=== PATIENT | female | born 1935 | race Caucasian/White ===

== ENCOUNTER → 2021-12-05 10:45 | Outpatient (BNVA) | payer MEDICARE, SELFPAY | PROVIDERS: Family Provider Nurse Practitioner Family; PCP Nurse Practitioner Family; Visit Provider Internal Medicine Cardiovascular Disease | DX: I49.9 Cardiac arrhythmia, unspecified (principal); R06.02 Shortness of breath; I27.29 Other secondary pulmonary hypertension; I11.0 Hypertensive heart disease with heart failure; I50.33 Acute on chronic diastolic (congestive) heart failure; E78.2 Mixed hyperlipidemia | CPT/HCPCS: 80048; 80061; 83880; 99214 ==

== ENCOUNTER 2022-03-19 11:14 | Emergency (ER) | payer MEDICARE, OTHER, SELFPAY ==
[2022-03-19 12:04] VITALS: BP 144/62; PULSE 61; RESP 14; TEMP 36.7; O2SAT 95; BMI 19.8
[2022-03-19 13:44] LABS: Basophils % 0.2 %; Eosinophils % 0.1 %; Hematocrit 39.6 % (37.0-47.0); Hemoglobin 12.7 g/dL (11.5-15.3); Lymphocytes # 1.3 10^3/uL (0.8-4.8); Lymphocytes % 12.5 %; Mean Corpuscular HGB Conc 32.1 g/dL (30.0-36.0); Mean Corpuscular Hemoglobin 32.1 pg (28.0-34.0); Mean Platelet Volume 9.5 fL (7.4-10.4); Monocytes # 1.1 10^3/uL (0.2-0.9); Monocytes % 11.2 %; Neutrophils # 7.52 10^3/uL (1.8-7.7); Neutrophils % 75.5 %; Nucleated Red Blood Cells % 0 %; Platelet Count 310 10^3/cmm (130-400); Red Blood Count 3.96 10^6/uL (4.1-5.3); Red Cell Distribution Width 12.8 % (12.1-15.1)
[2022-03-19 13:59] LABS: Anion Gap 16.1 (5-19); Blood Urea Nitrogen 21 mg/dL (8-23); Calcium 10.2 mg/dL (8.5-10.5); Carbon Dioxide 29 mmol/L (22-29); Chloride 96 mmol/L (98-107); Glucose 89 mg/dL (65-115); Osmolality Calculated 286 mOsm/kg (285-295); Potassium 4.1 mmol/L (3.5-5.1); Sodium 137 mmol/L (136-145)
[2022-03-19 14:33] VITALS: BP 163/76; PULSE 58; RESP 17; O2SAT 97
--- NOTE | 2022-03-19 14:43 | XR_ITS ---
WS: [id number] Lumbar spine, 3 views, 03/19/2022 Clinical Data: low back pain Comparison: CT L-spine, 07/23/2015. Findings: There is a compression fracture of the L4 vertebral body with loss of 50% of the central vertebral thi dy height which was not present on the prior CT lumbar spine. There is an old compression fracture of L1 with loss of the 50% of the central vertebral body height unchanged. There is degenerative disc n arrowing at L5-S1. 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 There is a slight levoscoliosis. Diffuse demineralization is present. The transverse processes and SI joints are unremarkable. There is a large amount of fecal material throughout the colon. There is ca lcification in the wall of the abdominal aorta but no aneurysm. XR/XR lumbar spine 2-3V* [id number] Impression: 1. L4 compression fracture with loss of 50% of the central vertebral body heigh t which may be recent. 2. Old compression fracture of L1. 3. Degenerative disc narrowing at L5-S1. 4. Levoscoliosis and osteoporosis.
--- NOTE | 2022-03-19 14:51 | ED_ITS ---
HPI - Back Pain/Injury General: Chief Complaint: Back Pain/Injury Stated Complaint: lower abd pain Time Seen by Provider: 03/19/22 14:07 History of Present Illness: Patient is an 87-year-old female comes to the ED with lower back pain. Symptoms have been going on now for approximately 3 weeks. She denies any fall or injury to cause pain. She saw her PCP approximately 4 days ago and they thought her back pain was due to a UTI and she has been on an antibiotic nitrofurantoin for the past 4 days. They also gave patient a shot of antibiotic at clinic. She states that her back pain has improved quite a bit over the past couple days. She says her pain is in the lower back and on the right side. She rates pain as mild today. She has been taking Tylenol for pain. Her PCP sent her here to the ED to have an x-ray of her lumbar spine done. Denies any fevers, nausea/vomiting, abdominal pain, dysuria or hematuria. Associated symptoms: Deny abdominal pain, chills, dysuria, fatigue, fever(s), hematuria, nausea or vomiting Review of Systems Const: Denies: fever(s), chills or fatigue Eyes: Denies: change in vision or eye discomfort ENMT: Denies: throat pain, odynophagia, nasal discharge or nasal congestion Card: Denies: chest pain, palpitations, edema, swelling of feet/ankles, dyspnea on exertion or orthopnea Resp: Denies: dyspnea, productive cough or non-productive cough GI: Denies: abdominal pain, nausea, vomiting, diarrhea, constipation or hematochezia : Denies: flank pain, dysuria or hematuria Musc: Reports: back pain (Lower back); Denies: neck pain or extremity swelling Skin/Breast: Denies: rash or new lesions Neuro: Denies: headache(s), numbness in extremities or weakness in extremities PFSH ED PFSH: Medical History Benign essential hypertension with target blood pressure below 140/90 Hyperlipidemia Near syncope Osteoporosis Pulmonary hypertension assoc with unclear multi-factorial mechanisms Syncope Thoracic back pain Ventricular arrhythmia Ventricular arrhythmia Family History Family/Other CAD (coronary artery disease) Other Hypertension Denies family history of Diabetes Clotting disorder Dementia Chronic kidney disease (CKD) Suicide Anesthesia complication Bleeding disorder Lung disease Cancer Stroke Social History Smoking and tobacco status: never smoked Alcohol intake: never Physical Exam Const: COMMON NORMALS: no acute distress, patient oriented x3 and alert G ENERAL APPEARANCE: cooperative and comfortable HENMT: COMMON NORMALS: normocephalic HEAD & SCALP: normocephalic MOUTH: Normal oral and palatal mucosa present THROAT: posterior oropharynx normal and uvula midline Neck/C-Spine: COMMON NORMALS: supple GENERAL: Yes normal visual inspection Resp: COMMON NORMALS: normal respiratory effort, No retractions, No use of accessory muscles and clear to auscultation bilaterally AUSCULTATION: clear to auscultation bilaterally Cardio: COMMON NORMALS: regular rate, regular rhythm, S1 normal heart sound present, S2 normal heart sound present, No gallops present (Cardio), No clicks present (Cardio), No murmurs present (Cardio) and Peripheral pulses 2+ throughout RATE: regular rate RHYTHM: regular rhythm HEART SOUNDS: S1 normal heart sound present and S2 normal heart sound present PERIPHERAL PULSES: Peripheral pulses 2+ throughout GI: COMMON NORMALS: Normal to inspection, nondistended, normoactive bowel sounds present, Soft to palpation, non-tender and no masses PALPATION: Yes Soft to palpation : COMMON NORMALS: Yes no CVA tenderness BLADDER/KIDNEY EXAM: Yes no CVA tenderness Back/Pelvis: COMMON NORMALS: no CVA tenderness LUMBAR SPINE/LOWER BACK: Yes lumbar spinal tenderness Lumbar spinal tenderness location: L3 and L4 and Yes paraspinal muscle tenderness Lumbar paraspinal muscle tenderness: right Right lumbar paraspinal muscle tenderness: L2, L3 and L4 Extremity: COMMON NORMALS: normal to inspection Neuro: COMMON NORMALS: patient oriented x3 SENSORIUM/ORIENTATION: Yes alert GAIT: Yes Normal gait present Skin: GENERAL SKIN EXAM: dry skin Course Vital Signs: Vital signs: Vital Signs Temperature 98.1 F 03/19/22 12:04 Pulse Rate 60 03/19/22 17:12 Respiratory Rate 17 03/19/22 17:12 Blood Pressure 152/82 03/19/22 17:12 Pulse Oximetry 97 03/19/22 17:12 Oxygen Delivery Me thod 03/19/22 14:33 MDM - Back Pain/Injury Medical Decision Making Patient is an 87-year-old female comes to the ED with lower back pain. Symptoms have been going on now for approximately 3 weeks. She denies any fall or injury to cause pain. She saw her PCP approximately 4 days ago and they thought her back pain was due to a UTI and she has been on an antibiotic nitrofurantoin for the past 4 days. Patient was sent here by PCP to have x-ray of lumbar spine done. Vitals are stable. Patient appears nontoxic in no acute distress. She has some lumbar paraspinal muscle tenderness on the right side and some lumbar spinal tenderness around L3 and L4. Rest of exam is benign. CBC and CMP were unremarkable. UA showed a little bit of RBCs white blood cells and positive nitrates. X-ray of lumbar spine showed L4 compression fracture with 50% loss of vertebral height and it may be recent injury. Given patient's symptoms I ordering her TLSO brace and I placed a referral with case management for patient to be followed up with Dr. Davalos for lumbar compression fracture. She was given a dose of IM Rocephin here in the ED to help with UTI as well. Patient was stable for discharge home and diagnosed with lumbar spine compression fracture and UTI. She was told to continue taking her previously prescribed antibiotic and pain med. Return to ED precautions given. Follow-up with PCP within the next 3 to 5 days for reevaluation. Patient understood and agreed with plan. Labs I reviewed the patient's lab results. : 03/19/22 13:22 03/19/22 13:22 Radiology Impressions Lumbar Spine X-Ray 03/19/22 14:43 Impression: 1. L4 compression fracture with loss of 50% of the central vertebral body height which may be recent. 2. Old compression fracture of L1. 3. Degenerative disc narrowing at L5-S1. 4. Levoscoliosis and osteoporosis. Laboratory Results WBC 10.0 10^3/uL (4.0-10.0) 03/19/22 13:22 RBC 3.96 10^6/uL (4.1-5.3) L 03/19/22 13:22 Hgb 12.7 g/dL (11.5-15.3) 03/19/22 13:22 Hct 39.6 % (37.0-47.0) 03/19/22 13:22 MCV 100.0 fl (81-99) H 03/19/22 13:22 MCH 32.1 pg (28.0-34.0) 03/19/22 13:22 MCHC 32.1 g/dL (30.0-36.0) 03/19/22 13:22 RDW 12.8 % (12.1-15.1) 03/19/22 13:22 Plt Count 310 10^3/cmm (130-400) 03/19/22 13:22 MPV 9.5 fL (7.4-10.4) 03/19/22 13:22 Neut % (Auto) 75.5 % 03/19/22 13:22 Lymph % (Auto) 12.5 % 03/19/22 13:22 [place] % (Auto) 11.2 % 03/19/22 13:22 Eos % (Auto) 0.1 % 03/19/22 13:22 Baso % (Auto) 0.2 % 03/19/22 13:22 Neut # (Auto) 7.52 10^3/uL (1.8-7.7) 03/19/22 13:22 Lymph # (Auto) 1.3 10^3/uL (0.8-4.8) 03/19/22 13:22 [place] # (Auto) 1.1 10^3/uL (0.2-0.9) H 03/19/22 13:22 Eos # (Auto) 0.0 10^3/uL (0.0-0.8) 03/19/22 13:22 Baso # (Auto) 0.0 10^3/uL (0.0-0.1) 03/19/22 13:22 Nucleated RBC % (auto) 0 % 03/19/22 13:22 Nucleated RBCs # 0.0 /100WBC 03/19/22 13:22 Sodium 137 mmol/L (136-145) 03/19/22 13:22 Potassium 4.1 mmol/L (3.5-5.1) 03/19/22 13:22 Chloride 96 mmol/L (98-107) L 03/19/22 13:22 Carbon Dioxide 29 mmol/L (22-29) 03/19/22 13:22 Anion Gap 16.1 (5-19) 03/19/22 13:22 BUN 21 mg/dL (8-23) 03/19/22 13:22 Creatinine 1.2 mg/dL (0.5-0.9) H 03/19/22 13:22 GFR Calculation Not Reportable 03/19/22 13:22 Glucose 89 mg/dL (65-115) 03/19/22 13:22 Calculated Osmolality 286 mOsm/kg (285-295) 03/19/22 13:22 Calcium 10.2 mg/dL (8.5-10.5) 03/19/22 13:22 Urine Color [place] (Yellow) 03/19/22 15:28 Urine Appearance Clear (CLEAR) 03/19/22 15:28 Urine pH 5 (5-7) 03/19/22 15:28 Ur Specific [place] 1.020 (1.005-1.030) 03/19/22 15:28 Urine Protein 1+ (Negative) H 03/19/22 15:28 Urine Glucose (UA) Norm (Normal) 03/19/22 15:28 Urine Ketones 1+ (Negative) H 03/19/22 15:28 Urine Blood Neg (Negative) 03/19/22 15:28 Urine Nitrate Positive (Negative) H 03/19/22 15:28 Urine Bilirubin 1+ (Negative) H 03/19/22 15:28 Urine Urobilinogen 4 mg/dL (Negative) H 03/19/22 15:28 Ur Leukocyte Esterase Negative (Negative) 03/19/22 15:28 Urine RBC 0-4 /hpf (0-2) H 03/19/22 15:28 Urine WBC 0-4 /hpf (0-5) H 03/19/22 15:28 Ur Squamous Epith Cells 0-4 /hpf (0-5) H 03/19/22 15:28 Amorphous Sediment 2+ /hpf 03/19/22 15:28 Urine Bacteria Trace /hpf (NONE) 03/19/22 15:28 Discharge Plan Discharge Patient Disposition: Home Clinical Impression: Compression fracture of lumbar vertebra Qualifiers: Encounter type: initial encounter Lumbar vertebra fracture level: L4 Qualified Code(s): S32.040A - Wedge compression fracture of fourth lumbar vertebra, initial encounter for closed fracture UTI (urinary tract infection) Qualifiers: Urinary tract infection type: acute cystitis Hematuria presence: with hematuria Qualified Code(s): N30.01 - Acute cystitis with hematuria Condition: Stable Prescriptions: No Action naproxen sodium [Aleve] 220 mg tablet 220 mg PO BID PRN aspirin 81 mg tablet,delayed release (DR/EC) 81 mg PO DAILY multivitamin Tablet 1 tab PO DAILY calcium carbonate-vit D3-min 600 mg calcium- 400 unit tablet 1 tab PO BID dimenhydrinate [Motion Sickness] 50 mg tablet 50 mg PO Q8H PRN ascorbic acid (vitamin C) 1,000 mg tablet 500 mg PO DAILY latanoprost 0.005 % drops 1 drop ophthalmic (eye) BID vitamin B complex [B Complex-Vitamin B12] Tablet 1 tab PO DAILY vit C,E,Zn,Yh--hrl-zeax 250-2.5-0.5 mg capsule PO DAILY metoprolol tartrate 25 mg tablet 25 mg PO BID Qty: 270 1RF Rx Instructions: patient to take 2 tabs in the AM and one in the PM lisinopril 5 mg tablet 5 mg PO DAILY Qty: 90 3RF furosemide [Lasix] 20 mg tablet 20 mg PO DAILY Qty: 90 3RF potassium chloride 8 mEq tablet extended release 8 meq PO DAILY Qty: 90 3RF lovastatin 40 mg tablet 40 mg PO DAILY Qty: 90 3RF Discharge Orders: Discharge ED (Routine); Ordered 03/19/22 Ordered By: Keegan Upton Referrals: Anabell Gill APN [Primary Care Provider] - Discharge Diet: Regular Discharge Activity: Increase activity as tolerated Patient Instructions: Urinary Tract Infection in Women (DC), Thoracolumbar Fracture (ED) Activity Restrictions/Additional Instructions: Follow-up with medical provider as directed in the next 5 to 7 days for reevalua tion. Case management should be contacting you in the next several days set up an appointment with Dr. Davalos the orthospine specialist for further management and evaluation of lumbar vertebrae compression fracture. Wear TLSO brace. Continue taking your previously prescribed antibiotic and pain med. Rest and limit any lifting and activities until cleared by Ortho child protective services specialist. Return to the ER or your medical provider if condition worsens. Please read and understand discharge instructions. Thank you for choosing [facility] for your healthcare needs today. Please realize this is an emergency room and that we are providing you with a medical screening exam and this may not be complete and all inclusive of all the testing and or work up that you may need to determine your ailment or severity of your illness. It is very important that you follow up as instructed or that you return to the Emergency Department should you have concerns or if your condition changes or worsens in any way. Coding Level of Care Code ED Press Tender for Xavi Guerrero Exam Comprehensive
[2022-03-19 16:20] LABS: Add Urine Culture? No; Add Urine Microscopic? YES; Amorphous Sediment Urine 2+ /hpf; Bacteria Urine TRACE /hpf; Bilirubin Urine 1+ (Negative); Blood Urine Neg (Negative); Glucose Urine UA Norm (Normal); Ketones Urine 1+ (Negative); Leukocyte Esterase Urine Negative (Negative); Nitrate Urine Positive (Negative); Protein Urine 1+ (Negative); RBC Urine 0-4 /hpf (0-2); Squamous Epithelial Cell Urine 0-4 /hpf (0-5); Urine Appearance Clear (CLEAR); Urine Color Orange (Yellow); Urobilinogen Urine 4 mg/dL (Negative); WBC Urine 0-4 /hpf (0-5); pH Urine 5 (5-7)
[2022-03-19] MEDS: lidocaine 1% INJ 20 mL MDV (mL) 2.1 ML XX (16:48)
[2022-03-19] MEDS: cefTRIAXone 1,000 mg SDV 1000 MG IM (16:49)
[2022-03-19 17:12] VITALS: BP 152/82; PULSE 60; RESP 17; O2SAT 97
--- NOTE | 2022-03-20 09:40 | DCPLANNER ---
Addendum entered by Zainab Fishman 03/20/22 10:55: manager human capital received the following message from the ortho clinic regarding follow up appointment: Pt had me speak with her daughter in law who stated they cannot bring her in due to having too much going on right now and they would call back when things slow down. I advised that it was in the patients best interest to schedule an appt as soon as possible Original Note: manager human capital had message to schedule a follow up appointment for patient with ortho. manager human capital sent patients information to the front office staff at ortho. Patients information will be printed and reviewed. Clinic will call patient with appointment information.
== END 2022-03-19 17:27 | disposition home or self-care (01) ==
PROVIDERS: Family Medicine; Emergency Provider Physician Assistant; PCP Nurse Practitioner Family
DX: S32.040A Wedge compression fracture of fourth lumbar vertebra, initial encounter for closed fracture (principal); N30.01 Acute cystitis with hematuria; Z79.82 Long term (current) use of aspirin; I10 Essential (primary) hypertension; E78.5 Hyperlipidemia, unspecified; X58.XXXA Exposure to other specified factors, initial encounter
CPT/HCPCS: 72100; 80048; 81001; 85025; 96372; 99284; J0696

== ENCOUNTER 2022-03-21 17:25 | Emergency (ER) | payer MEDICARE, OTHER, SELFPAY ==
[2022-03-21 17:30] VITALS: BP 159/80; PULSE 62; RESP 16; TEMP 36.4; O2SAT 94
--- NOTE | 2022-03-21 17:50 | ED_ITS ---
HPI - Back Pain/Injury General: Chief Complaint: Back Pain/Injury Stated Complaint: Right leg and back in pain Time Seen by Provider: 03/21/22 17:48 History of Present Illness: 87-year-old female comes in today with complaints of low back radiating to the right lower extremity. Due to pain on the right inner leg after family discussed with primary care provider. PCP recommended further evaluation for blood clot of the leg. Patient has recently been diagnosed with a compression fracture due to osteoporosis of the lumbar spine. Patient appears nontoxic. Patient appears in mild to moderate pain. Associated symptoms: Deny fever(s) Review of Systems General: Reports: 10 or more systems reviewed and unremarkable except in HPI and below Const: Denies: fever(s) Card: Denies: chest pain Resp: Denies: dyspnea Musc: Reports: extremity pain [facility] ED PFSH: Medical History Benign essential hypertension with target blood pressure below 140/90 Hyperlipidemia Near syncope Osteoporosis Pulmonary hypertension assoc with unclear multi-factorial mechanisms Syncope Thoracic back pain Ventricular arrhythmia Ventricular arrhythmia Family History Family/Other CAD (coronary artery disease) Other Hypertension Denies family history of Diabetes Clotting disorder Dementia Chronic kidney disease (CKD) Suicide Anesthesia complication Bleeding disorder Lung disease Cancer Stroke Social History Smoking and tobacco status: never smoked Alcohol intake: never Physical Exam Const: COMMON NORMALS: alert HENMT: HEAD & SCALP: normal to inspection Neck/C-Spine: COMMON NORMALS: full ROM Resp: COMMON NORMALS: normal respiratory effort and clear to auscultation bilaterally AUSCULTATION: clear to auscultation bilaterally Cardio: COMMON NORMALS: regular rate and regular rhythm RATE: regular rate RHYTHM: regular rhythm Extremity: RIGHT LOWER EXTREMITY: Yes upper leg (Palpable tenderness to the right thigh.) and Yes lower leg (No swelling or redness.) Neuro: SENSORIUM/ORIENTATION: Yes alert Skin: COMMON NORMALS: no rashes or lesions noted GENERAL SKIN EXAM: no rashes or lesions noted Course Vital Signs: Vital signs: Vital Signs Temperature 97.5 F L 03/21/22 17:30 Pulse Rate 62 03/21/22 17:30 Respiratory Rate 16 03/21/22 17:30 Blood Pressure 159/80 03/21/22 17:30 Pulse Oximetry 94 03/21/22 17:30 Oxygen Delivery Me thod 03/21/22 17:30 MDM - Back Pain/Injury Medical Decision Making Patient comes in today for complaints of radiating pain going down the right leg. Patient recently been diagnosed with a compression fracture of the lumbar spine. Patient has had aggravating pain and discomfort. Patient appears nontoxic. Patient appears in no pain at rest. Right lower extremity has no swelling or redness and negative Homans' sign. Primary care recommended further evaluation though to rule out DVT. Differential diagnosis includes but not limited to lumbar radiculopathy, DVT, muscle strain, intervertebral disc disease, facet arthropathy, piriformis syndrome. Ultrasound of the extremity noted no DVT. Feel the patient probably has radiculopathy secondary to her acute compression fractures. Recommend better pain control. We will start some hydrocodone 5/325's 1 tablet every 8 hours for severe pain. Patient and family both reported understanding. Also recommended follow-up with primary care for physical therapy referral. Discharge Plan Discharge Patient Disposition: Home Clinical Impression: Acute lumbar radiculopathy Compression fracture of lumbar vertebra Qualifiers: Encounter type: subsequent encounter Lumbar vertebra fracture level: unspecified lumbar vertebra Fracture healing: with routine healing Qualified Code(s): S32.000D - Wedge compression fracture of unspecified lumbar vertebra, subsequent encounter for fracture with routine healing Condition: Stable Prescriptions: New hydrocodone-acetaminophen 5-325 mg tablet 1 tab PO Q8H PRN (Reason: pain (scale score 7-10)) Qty: 15 0RF No Action naproxen sodium [Aleve] 220 mg tablet 220 mg PO BID PRN aspirin 81 mg tablet,delayed release (DR/EC) 81 mg PO DAILY multivitamin Tablet 1 tab PO DAILY calcium carbonate-vit D3-min 600 mg calcium- 400 unit tablet 1 tab PO BID dimenhydrinate [Motion Sickness] 50 mg tablet 50 mg PO Q8H PRN ascorbic acid (vitamin C) 1,000 mg tablet 500 mg PO DAILY latanoprost 0.005 % drops 1 drop ophthalmic (eye) BID vitamin B complex [B Complex-Vitamin B12] Tablet 1 tab PO DAILY vit C,E,Zn,Mr-yafeq7-dbj-zeax 250-2.5-0.5 mg capsule PO DAILY metoprolol tartrate 25 mg tablet 25 mg PO BID Qty: 270 1RF Rx Instructions: patient to take 2 tabs in the AM and one in the PM lisinopril 5 mg tablet 5 mg PO DAILY Qty: 90 3RF furosemide [Lasix] 20 mg tablet 20 mg PO DAILY Qty: 90 3RF potassium chloride 8 mEq tablet extended release 8 meq PO DAILY Qty: 90 3RF lovastatin 40 mg tablet 40 mg PO DAILY Qty: 90 3RF Discharge Orders: Discharge ED (Routine); Ordered 03/21/22 Ordered By: Barrie Turcios Referrals: Anabell Gill APN [Primary Care Provider] - Discharge Diet: Usual diet Discharge Activity: Increase activity as tolerated Patient Instructions: Vertebral Compression Fracture (ED) Activity Restrictions/Additional Instructions: Use acetaminophen and naproxen to control pain. Use hydrocodone for severe pain. Drink plenty of water with medication. Follow-up with primary care for referral for physical therapy. Increase activity as tolerated. Return to ER for worsening symptoms such as fever greater than 100.4, chest pain, or shortness of breath or new concerns. Coding Level of Care Code ED Sr Community Manager for Carolg Fwd Exam Detailed
--- NOTE | 2022-03-21 17:54 | USR_ITS ---
PROCEDURE INFORMATION: Exam: US Duplex Right Lower Extremity Veins, Limited Exam date and time: 03/21/2022 6:11 PM Age: 87 years old Clinical indication: Leg, upper and leg, lower; Right; Patient HX: Pain in RT. Leg. Has been severe. ; Additional info: Leg pain, referred from pcp of concern of blood clot TECHNIQUE: Imaging protocol: Real-time Duplex ultrasound of the Right Lower Extremity with 2-D nicholson scale, color Doppler flow and spectral waveform analysis with image documentation. Limited exam was focused on the right lower extremity veins. COMPARISON: No relevant prior studies available. FINDINGS: Right deep veins: Unremarkable. The common femoral, femoral, proximal profunda femoral and popliteal veins are patent without thrombus. Normal Doppler waveforms. Normal compressibility and/or augmentation response. Right superficial veins: Unremarkable. Saphenofemoral junction is patent without thrombus. Soft tissues: Unremarkable. US/[place] [id number] IMPRESSION: No evidence of deep vein thrombosis, right lower extremity.
--- NOTE | 2022-03-21 18:06 | PC.NURSE ---
Pt to Ultrasound with techs and family member.
[2022-03-21] MEDS: HYDROcodone-acetaminophen 5-325 mg Tablet 1 TAB PO (19:03)
== END 2022-03-21 19:05 | disposition home or self-care (01) ==
PROVIDERS: Emergency Provider Nurse Practitioner Family; PCP Nurse Practitioner Family
DX: S32.000D Wedge compression fracture of unspecified lumbar vertebra, subsequent encounter for fracture with routine healing (principal); X58.XXXD Exposure to other specified factors, subsequent encounter; M79.604 Pain in right leg
CPT/HCPCS: 93971; 99284

== ENCOUNTER → 2023-01-19 10:04 | Outpatient (BNVA) | payer MEDICARE, OTHER, SELFPAY | PROVIDERS: PCP Nurse Practitioner Family; Referring Provider Nurse Practitioner Family; Visit Provider Podiatrist Foot & Ankle Surgery | DX: I73.9 Peripheral vascular disease, unspecified (principal); B35.1 Tinea unguium | CPT/HCPCS: 11721; 99204 ==

== ENCOUNTER 2023-01-23 13:28 | Emergency (ER) | payer MEDICARE, OTHER, SELFPAY ==
[2023-01-23 13:29] VITALS: BP 120/46; PULSE 55; RESP 18; TEMP 36.8; O2SAT 96
--- NOTE | 2023-01-23 13:31 | ED_ITS ---
HPI - Syncope General: Chief Complaint: Syncope Stated Complaint: syncope Time Seen by Provider: 01/23/23 13:29 Source: patient Mode of arrival: ambulatory History of Present Illness: 87-year-old female presents emergency room via EMS she is awake and alert. She had a syncopal episode while sitting was unresponsive for a few minutes. She is awake and alert and actually asking to leave his soon as she arrives in the emergency room department. She has no focal neurologic deficits she denies chest or abdominal pain or any other symptoms. She did recently have her metoprolol increased. MD complaint: loss of consciousness Onset (ago): minute(s) Prodromal symptoms: lightheaded Witnessed: Yes - by Bystander Context: at rest Associated symptoms: Reports lightheadedness; Deny abdominal pain, chest pain, fever(s), headache(s), nausea, short of breath, vertigo or weakness Treatments prior to arrival: none Review of Systems Const: Denies: fever(s), chills, body aches, change in appetite, fatigue or malaise ENMT: Denies: throat pain, ear or mastoid pain, nasal discharge or nasal congestion Card: Reports: lightheadedness; Denies: chest pain, edema, dyspnea on exertion or orthopnea Resp: Denies: dyspnea, productive cough or non-productive cough GI: Denies: abdominal pain, nausea, vomiting, hematemesis, coffee ground emesis, diarrhea, constipation, bloating, hematochezia or melena : Denies: flank pain, difficulty voiding, dysuria, urinary frequency or urinary urgency Skin/Breast: Denies: rash or pruritus Neuro: Denies: headache(s) or vertigo [facility] PFSH: Medical History Benign essential hypertension with target blood pressure below 140/90 Hyperlipidemia Near syncope Osteoporosis Pulmonary hypertension assoc with unclear multi-factorial mechanisms Syncope Thoracic back pain Ventricular arrhythmia Ventricular arrhythmia Family History Family/Other CAD (coronary artery disease) Other Hypertension Denies family history of Diabetes Clotting disorder Dementia Chronic kidney disease (CKD) Suicide Anesthesia complication Bleeding disorder Lung disease Cancer Stroke Social History Smoking and tobacco status: never smoked Alcohol intake: never Substance/Drug Use: never Physical Exam Const: GENERAL APPEARANCE: cooperative and comfortable ORIENTATION/CONSCIOUSNESS: Yes awake, Yes oriented to person, Yes oriented to place and Yes oriented to time HENMT: COMMON NORMALS: normocephalic, atraumatic and hearing grossly normal bilaterally HEAD & SCALP: normocephalic and atraumatic Resp: COMMON NORMALS: normal respiratory effort, No retractions, No use of accessory muscles and clear to auscultation bilaterally AUSCULTATION: clear to auscultation bilaterally Cardio: COMMON NORMALS: regular rate, regular rhythm and No murmurs present (Cardio) RATE: regular rate RHYTHM: regular rhythm GI: COMMON NORMALS: Soft to palpation and No hepatosplenomegaly present AUSCULTATION: Yes normoactive bowel sounds PALPATION: Yes Soft to palpation, No Tenderness to palpation present (GI), No Guarding due to palpation present (GI) and Yes No hepatosplenomegaly present : COMMON NORMALS: Yes no CVA tenderness BLADDER/KIDNEY EXAM: Yes no CVA tenderness Back/Pelvis: COMMON NORMALS: no CVA tenderness Extremity: COMMON NORMALS: normal to inspection, capillary refill normal, no clubbing, cyanosis or edema, no calf tenderness and no pedal edema Neuro: SENSORIUM/ORIENTATION: Yes oriented to person, Yes oriented to place and Yes oriented to time Skin: COMMON NORMALS: no rashes or lesions noted GENERAL SKIN EXAM: no rashes or lesions noted Course Vital Signs: Vital signs: Vital Signs Temperature 98.2 F 01/23/23 13:29 Pulse Rate 54 L 01/23/23 14:11 Respiratory Rate 18 01/23/23 14:11 Blood Pressure 132/78 01/23/23 16:27 Pulse Oximetry 94 01/23/23 14:11 Oxygen Delivery Me thod Room Air 01/23/23 14:11 MDM - Syncope Medical Decision Making Cardiac enzymes are negative patient would like to go home. She recently her metoprolol increased she is rather bradycardic and was hypotensive for a time. She is doing better she is awake and alert. EKGs did not show anything other than a sinus bradycardia. Rate at times was as low as 48. We will decrease her metoprolol to 12.5 twice daily have her follow-up with her primary care doctor we will get a 48-hour Holter monitor and echocardiogram set up as an outpatient she is to return if she has any further symptoms. Medical Records I reviewed the patient's medical records. Lab Data I reviewed the patient's lab results. 01/23/23 13:39 01/23/23 13:39 Radiology Impressions Chest X-Ray 01/23/23 13:32 IMPRESSION: Unremarkable frontal portable chest x-ray. Laboratory Results WBC 5.2 10^3/uL (4.0-10.0) 01/23/23 13:39 RBC 4.06 10^6/uL (4.1-5.3) L 01/23/23 13:39 Hgb 12.5 g/dL (11.5-15.3) 01/23/23 13:39 Hct 38.5 % (37.0-47.0) 01/23/23 13:39 MCV 94.8 fl (81-99) 01/23/23 13:39 MCH 30.8 pg (28.0-34.0) 01/23/23 13:39 MCHC 32.5 g/dL (30.0-36.0) 01/23/23 13:39 RDW 13.5 % (12.1-15.1) 01/23/23 13:39 Plt Count 211 10^3/cmm (130-400) 01/23/23 13:39 MPV 10.6 fL (7.4-10.4) H 01/23/23 13:39 Neut % (Auto) 60.9 % 01/23/23 13:39 Lymph % (Auto) 28.8 % 01/23/23 13:39 [place] % (Auto) 8.7 % 01/23/23 13:39 Eos % (Auto) 0.8 % 01/23/23 13:39 Baso % (Auto) 0.6 % 01/23/23 13:39 Neut # (Auto) 3.15 10^3/uL (1.8-7.7) 01/23/23 13:39 Lymph # (Auto) 1.5 10^3/uL (0.8-4.8) 01/23/23 13:39 [place] # (Auto) 0.5 10^3/uL (0.2-0.9) 01/23/23 13:39 Eos # (Auto) 0.0 10^3/uL (0.0-0.8) 01/23/23 13:39 Baso # (Auto) 0.0 10^3/uL (0.0-0.1) 01/23/23 13:39 Nucleated RBC % (auto) 0 % 01/23/23 13:39 Nucleated RBCs # 0.0 /100WBC 01/23/23 13:39 Sodium 137 mmol/L (136-145) 01/23/23 13:39 Potassium 4.0 mmol/L (3.5-5.1) 01/23/23 13:39 Chloride 99 mmol/L (98-107) 01/23/23 13:39 Carbon Dioxide 26 mmol/L (22-29) 01/23/23 13:39 Anion Gap 16.0 (5-19) 01/23/23 13:39 BUN 24 mg/dL (8-23) H 01/23/23 13:39 Creatinine 1.4 mg/dL (0.5-0.9) H 01/23/23 13:39 GFR Calculation Not Reportable 01/23/23 13:39 Glucose 118 mg/dL (65-115) H 01/23/23 13:39 Calculated Osmolality 289 mOsm/kg (285-295) 01/23/23 13:39 Calcium 9.2 mg/dL (8.5-10.5) 01/23/23 13:39 Total Bilirubin 0.5 mg/dL (0.15-1.2) 01/23/23 13:39 AST 19 U/L (0-32) 01/23/23 13:39 ALT 10 U/L (0-33) 01/23/23 13:39 Alkaline Phosphatase 58 U/L (35-105) 01/23/23 13:39 Troponin T Baseline 43 ng/L (0-10) H 01/23/23 13:39 Troponin T 120 Minute 32.86 ng/L (0-10) H 01/23/23 15:33 Delta Troponin T -10.14 ABS# (0-10) L 01/23/23 15:33 Total Protein 6.3 g/dL (6.6-8.7) L 01/23/23 13:39 Albumin 3.8 g/dL (3.5-5.2) 01/23/23 13:39 Globulin 2.5 g/dL (1.3-4.6) 01/23/23 13:39 Discharge Plan Discharge Patient Disposition: Home Clinical Impression: Syncope Condition: Stable Prescriptions: Changed metoprolol tartrate 25 mg tablet 12.5 mg PO BID Qty: 270 0RF No Action naproxen sodium [Aleve] 220 mg tablet 220 mg PO BID PRN (Reason: Pain) aspirin 81 mg tablet,delayed release (DR/EC) 81 mg PO DAILY multivitamin Tablet 1 tab PO DAILY calcium carbonate-vit D3-min 600 mg calcium- 400 unit tablet 1 tab PO BID dimenhydrinate [Motion Sickness] 50 mg tablet 50 mg PO Q8H PRN (Reason: Motion Sickness) ascorbic acid (vitamin C) 1,000 mg tablet 500 mg PO DAILY latanoprost 0.005 % drops 1 drop ophthalmic (eye) BID vitamin B complex [B Complex-Vitamin B12] Tablet 1 tab PO DAILY lisinopril 5 mg tablet 5 mg PO DAILY Qty: 90 3RF lovastatin 40 mg tablet 40 mg PO DAILY Qty: 90 3RF hydrocodone-acetaminophen 5-325 mg tablet 1 tab PO Q8H PRN (Reason: pain (scale score 7-10)) Qty: 15 0RF escitalopram oxalate 10 mg tablet 10 mg PO DAILY vit C-E-zinc [id number]-fdakxc 50 mg-15 unit- 4.5 mg-2.5 mg Tablet,Chewable 1 tab PO DAILY Discharge Orders: Discharge ED (Routine); Ordered 01/23/23 Ordered By: Pratik Dowling Referrals: Anabell Gill APN [Primary Care Provider] - Discharge Diet: Usual diet Discharge Activity: Increase activity as tolerated Patient Instructions: Opioid Safety, Pain Management Activity Restrictions/Additional Instructions: Decrease your metoprolol to half a tablet twice a day. ecommerce manager will make arrangements for outpatient echocardiogram and 48-hour Holter monitor. If you have any recurrent symptoms return to the emergency room. Coding Level of Care Code ED [employer] for [employer]
--- NOTE | 2023-01-23 13:32 | XR_ITS ---
WS: [id number] EXAMINATION: XR chest 1V portable [id number] REASON FOR EXAM: dyspnea/cough COMPARISON: None available. ORDER DATE: 01/23/2023 1:32 PM TECHNIQUE: A single, portable frontal chest x-ray was obtained. X-RAY FINDINGS: The lungs are clear. Pleural spaces are clear. No pleural effusions or pneumothorax. Cardiomediastinal silhouette is unremarkable except for atherosclerotic aortic change. No evidence fo r pulmonary edema. Soft tissue and osseous structures are unremarkable. No tubes or lines are present. XR/XR chest 1V portable [id number] IMPRESSION: Unremarkable frontal portable chest x-ray.
--- NOTE | 2023-01-23 13:32 | ECG_ITS ---
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 Measurements Intervals [place] Rate: 51 P: 17 MD: 153 QRS: 43 QRSD: 81 T: 55 QT: 435 QTc: 402 Interpretive Statements SINUS BRADYCARDIA No previous ECG available for comparison Electronically Signed On 01-23-2023 18:38:28 CDT by Jane Brown M.D. [id number]
[2023-01-23 13:39] VITALS: RESP 18; O2SAT 92
[2023-01-23 13:59] LABS: Basophils % 0.6 %; Eosinophils % 0.8 %; Hematocrit 38.5 % (37.0-47.0); Hemoglobin 12.5 g/dL (11.5-15.3); Lymphocytes # 1.5 10^3/uL (0.8-4.8); Lymphocytes % 28.8 %; Mean Corpuscular HGB Conc 32.5 g/dL (30.0-36.0); Mean Corpuscular Hemoglobin 30.8 pg (28.0-34.0); Mean Corpuscular Volume 94.8 fl (81-99); Mean Platelet Volume 10.6 fL (7.4-10.4); Monocytes # 0.5 10^3/uL (0.2-0.9); Monocytes % 8.7 %; Neutrophils # 3.15 10^3/uL (1.8-7.7); Neutrophils % 60.9 %; Nucleated Red Blood Cells % 0 %; Platelet Count 211 10^3/cmm (130-400); Red Blood Count 4.06 10^6/uL (4.1-5.3); Red Cell Distribution Width 13.5 % (12.1-15.1); White Blood Count 5.2 10^3/uL (4.0-10.0)
[2023-01-23 14:11] VITALS: BP 106/45; PULSE 54; RESP 18; O2SAT 94
[2023-01-23 14:21] LABS: Troponin(5th) Baseline 43 ng/L (0-10)
[2023-01-23 14:24] LABS: Alanine Aminotransferase 10 U/L (0-33); Albumin Level 3.8 g/dL (3.5-5.2); Alkaline Phosphatase 58 U/L (35-105); Aspartate Amino Transferase 19 U/L (0-32); Blood Urea Nitrogen 24 mg/dL (8-23); Calcium 9.2 mg/dL (8.5-10.5); Carbon Dioxide 26 mmol/L (22-29); Chloride 99 mmol/L (98-107); Globulin 2.5 g/dL (1.3-4.6); Glucose 118 mg/dL (65-115); Osmolality Calculated 289 mOsm/kg (285-295); Sodium 137 mmol/L (136-145); Total Bilirubin 0.5 mg/dL (0.15-1.2); Total Protein 6.3 g/dL (6.6-8.7)
--- NOTE | 2023-01-23 14:51 | PC.PHAR ---
PT VERIFIED ALL MEDS BUT POTASSIUM AND LASIX. PHARMACY VERIFIED HAS NOT FILLED SINCE 2021.
--- NOTE | 2023-01-23 15:32 | ECG_ITS ---
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 Measurements Intervals [place] Rate: 48 P: 9 NM: 139 QRS: 49 QRSD: 85 T: 48 QT: 429 QTc: 386 Interpretive Statements SINUS BRADYCARDIA Compared to ECG 01/23/2023 13:37:59 No significant changes Electronically Signed On 01-23-2023 18:44:44 CDT by Jane Brown M.D. [id number]
[2023-01-23 16:17] LABS: Troponin 5 2HR 32.86 ng/L (0-10)
[2023-01-23 16:27] VITALS: BP 132/78
--- NOTE | 2023-01-26 11:42 | DCPLANNER ---
Addendum entered by Zainab Fishman 02/05/23 13:44: clinical operations manager received the following message from heart care regarding follow up appointment: Spoke with patient's son Hussein calzada of [employer] stated his mom and him do not want this done at this time . Thank you. Original Note: clinical operations manager had message to schedule an out patient 48 hour halter monitor, and an echo cardiogram for patient. clinical operations manager faxed signed orders to centralized scheduling and heart care, who will call patient with appointment information.
== END 2023-01-23 17:11 | disposition home or self-care (01) ==
PROVIDERS: Emergency Provider Family Medicine; PCP Nurse Practitioner Family
DX: R55 Syncope and collapse (principal); I10 Essential (primary) hypertension; E78.5 Hyperlipidemia, unspecified; Z79.899 Other long term (current) drug therapy; Z79.82 Long term (current) use of aspirin
CPT/HCPCS: 36415; 71045; 80053; 84484; 85025; 93005; 99285

== ENCOUNTER → 2023-02-26 11:05 | Outpatient (BNVA) | payer MEDICARE, OTHER, SELFPAY | PROVIDERS: PCP Nurse Practitioner Family; Referring Provider Nurse Practitioner Family; Visit Provider Nurse Practitioner Family | DX: L57.0 Actinic keratosis (principal); L57.8 Other skin changes due to chronic exposure to nonionizing radiation; L82.1 Other seborrheic keratosis; L82.0 Inflamed seborrheic keratosis; D22.5 Melanocytic nevi of trunk; L81.4 Other melanin hyperpigmentation; D48.5 Neoplasm of uncertain behavior of skin | CPT/HCPCS: 11102; 17004; 17110; 99203 ==

== ENCOUNTER → 2023-03-27 08:15 | Outpatient (BNVA) | payer MEDICARE, OTHER, SELFPAY | PROVIDERS: PCP Nurse Practitioner Family; Visit Provider Podiatrist Foot & Ankle Surgery | DX: B35.1 Tinea unguium (principal); I73.9 Peripheral vascular disease, unspecified; M79.671 Pain in right foot; M79.672 Pain in left foot | CPT/HCPCS: 99213 ==